=== PATIENT | male | born 1985 | race Caucasian/White ===

== ENCOUNTER 2022-11-23 15:57 | Emergency (ER) | payer OTHER ==
[~2022-11-23] VITALS: Ht 175 cm; Wt 85.6 kg
[~2022-11-23 15:57] MED LIST: Ibuprofen; LEVO750T6; PRD10T; PRD5T PO; TRAM-21; TRM50T; TRM50T PO
[2022-11-23] MEDS ORDERED: dexAMETHasone INJ 10 MG/ML 1 ML VIAL IV STA (16:14)
[2022-11-23] MEDS ORDERED: NS IV 1000 ML 1,000 ML IV STA (16:14)
--- NOTE | 2022-11-23 16:21 | ED Abdominal Pain ---
General Chief Complaint: Abdominal/GI Problems Stated Complaint: ABD PAIN Source of Information: Patient History of Present Illness Date Seen by Provider: Nov 23, 2022 Time Seen by Provider: 16:03 Initial Comments 37-year-old male presenting with complaints of lower abdominal and rectal pain since Monday. He has a history of Crohn's disease and recently had a colonoscopy that showed a tumor in the cecum as well as towards his rectum. He is scheduled to follow-up with surgeon Dr. Loli Owens out of [facility] in [place]. His GI provider is through [facility] gastro[facility] and when he called about the pain increasing since Monday when he decreased his prednisone to 10 mg a day they advised he come to the ED for a CT scan since it would be a week or better before they could order it as an outpatient. He denies nausea or vomiting or pain with urination. He felt the pain was worse on Monday and was having some sweating but did not take his temperature to see if he had a fever. He has pain 6 out of 10 today and states that occasionally he will have more severe sharp pains for a few seconds. He denies any blood in his stools or black tarry stools but states that since Monday his stools have been looser. Timing/Duration: 3-4 Days Severity/Quality: Moderate, Aching, Sharp (Occasional sharp stabbing pains) Location: RLQ, LLQ, Suprapubic, Other (Rectal) Activities at Onset: None Modifying Factors: Worsens With Eating, Worsens With Movement, Worsens With Palpation Associated Symptoms: No Back Pain, No Chest Pain, No Diaphoresis, No Fever/Chills, No Fatigue, No Headache, No Heartburn, No Nausea/Vomiting, No Rash, No Shortness of Air, No Syncope, No Weakness Allergies and Home Medications Allergies Coded Allergies: Azithromycin (Unverified Allergy, Mild, RASH, 05/08/09) Patient Home Medication List Home Medication List Reviewed: Yes Amoxicillin/Potassium Clav (Amox Tr-K Clv 875-125 mg Tab) 875 Mg-125 Mg Tablet, 1 EACH PO BID Prescribed by: THOMAS EDMONDSON on 11/23/22 1711 Hydrocodone/Acetaminophen (Hydrocodone-Acetamin 5-325 mg) 5 Mg-325 Mg Tablet, 1 TAB PO Q6H PRN for PAIN SEVERE Prescribed by: THOMAS EDMONDSON on 11/23/22 1740 Prednisone (Prednisone) 5 Mg Tab, 5 MG PO UD Prescribed by: MONICA KRUEGER on 06/17/112024 Tramadol Hcl (Ultram) 50 Mg Tab, 50 MG PO Q4-6HOURS PRN Prescribed by: MONICA KRUEGER on 06/17/112024 [Ibuprofen] , (Reported) Entered as Reported by: JAK PEREZ on 06/17/11 1853 Review of Systems Review of Systems Constitutional: No chills, No fever EENTM: No Symptoms Reported Respiratory: No Symptoms Reported Cardiovascular: No Symptoms Reported Gastrointestinal: See HPI Genitourinary: Denies Burning, Denies Discharge, Denies Flank Pain, Denies Hematuria Musculoskeletal: No back pain Skin: No rash Psychiatric/Neurological: Denies Headache Past Iaxbfkq-Jofywu-Cbjnkv Hx Past Medical History Surgery/Hospitalization HX: Crohn's disease Surgeries: Yes Appendectomy Reproductive Disorders: No Physical Exam Vital Signs Vital Signs - First Documented 11/23/22 16:31 Temp 36.7 Pulse 96 Resp 16 B/P (MAP) 191/85 (120) Pulse Ox 97 O2 Delivery Room Air Capillary Refill : Height/Weight/BMI Height: '" Weight: lbs. oz. kg; BMI Method:Stated General Appearance: WD/WN, no apparent distress HEENT: PERRL/EOMI Respiratory: chest non-tender, lungs clear, normal breath sounds, no respiratory distress, no accessory muscle use Cardiovascular: normal peripheral pulses, regular rate, rhythm Gastrointestinal: normal bowel sounds, soft, no pulsatile mass; No distended; guarding; No rebound; tenderness (diffuse voluntary guarding and tender to palpation more in the lower abdomen and suprapubic area) Rectal: deferred Extremities: normal range of motion, non-tender, normal capillary refill Neurologic/Psychiatric: alert, oriented x 3 Skin: normal color, warm/dry, tattoos/piercings (multiple tattoos) Images 1 - pain and tenderness to palpation of lower abdomen and suprapubic area Focused Exam Lactate Level 11/23/22 16:15: Lactic Acid Level 1.00 Lactic Acid Level Laboratory Tests Test 11/23/22 16:15 Lactic Acid Level 1.00 MMOL/L (0.50-2.00) Progress/Results/Core Measures Results/Orders Lab Results Laboratory Tests Test 11/23/22 16:15 Range/Units White Blood Count 13.5 H 4.3-11.0 10^3/uL Red Blood Count 5.03 4.30-5.52 10^6/uL Hemoglobin 15.2 13.3-17.7 g/dL Hematocrit 47 40-54 % Mean Corpuscular Volume 94 80-99 fL Mean Corpuscular Hemoglobin 30 25-34 pg Mean Corpuscular Hemoglobin Concent 32 32-36 g/dL Red Cell Distribution Width 13.6 10.0-14.5 % Platelet Count 312 130-400 10^3/uL Mean Platelet Volume 9.1 9.0-12.2 fL Immature Granulocyte % (Auto) 1 % Neutrophils (%) (Auto) 82 H 42-75 % Lymphocytes (%) (Auto) 11 L 12-44 % Monocytes (%) (Auto) 6 0-12 % Eosinophils (%) (Auto) 0 0-10 % Basophils (%) (Auto) 0 0-10 % Neutrophils # (Auto) 11.1 H 1.8-7.8 10^3/uL Lymphocytes # (Auto) 1.5 1.0-4.0 10^3/uL Monocytes # (Auto) 0.9 0.0-1.0 10^3/uL Eosinophils # (Auto) 0.0 0.0-0.3 10^3/uL Basophils # (Auto) 0.0 0.0-0.1 10^3/uL Immature Granulocyte # (Auto) 0.1 0.0-0.1 10^3/uL Neutrophils % (Manual) 80 % Lymphocytes % (Manual) 13 % Monocytes % (Manual) 7 % Sodium Level 139 135-145 MMOL/L Potassium Level 4.6 3.6-5.0 MMOL/L Chloride Level 105 98-107 MMOL/L Carbon Dioxide Level 26 21-32 MMOL/L Anion Gap 8 5-14 MMOL/L Blood Urea Nitrogen 9 7-18 MG/DL Creatinine 0.83 0.60-1.30 MG/DL Estimat Glomerular Filtration Rate 117 BUN/Creatinine Ratio 11 Glucose Level 134 H 70-105 MG/DL Lactic Acid Level 1.00 0.50-2.00 MMOL/L Calcium Level 9.0 8.5-10.1 MG/DL Corrected Calcium 9.3 8.5-10.1 MG/DL Total Bilirubin 0.6 0.1-1.0 MG/DL Aspartate Amino Transf (AST/SGOT) 79 H 5-34 U/L Alanine Aminotransferase (ALT/SGPT) 182 H 0-55 U/L Alkaline Phosphatase 59 40-136 U/L C-Reactive Protein 4.99 H <0.50 MG/DL Total Protein 7.1 6.4-8.2 GM/DL Albumin 3.6 3.2-4.5 GM/DL Lipase 70 8-78 U/L My Orders Orders - THOMAS EDMONDSON MD Comprehensive Metabolic Panel (11/23/22 16:14) Lipase (11/23/22 16:14) Ed Iv/Invasive Line Start (11/23/22 16:14) Cbc And Automated Diff (11/23/22 16:14) Ct Abdomen/Pelvis W (11/23/22 16:14) Ns Iv 1000 Ml (Ns Iv 1000 Ml) (11/23/22 16:14) Dexamethasone Injection (Dexamethasone (11/23/22 16:14) Lactic Acid Analyzer (11/23/22 16:14) Crp Fs (11/23/22 16:14) Iohexol Injection (Omnipaque 350 Mg/Ml 1 (11/23/22 16:30) Received Contrast (Hold Metformin- Contr (11/23/22 16:30) Ns (Ivpb) 100 Ml (Sodium Chloride 0.9% 1 (11/23/22 16:30) Manual Differential (11/23/22 16:15) Ceftriaxone Iv/Im (Ceftriaxone Iv/Im) (11/23/22 17:13) Metronidazole 500mg/100ml Ivpb (Metronid (11/23/22 17:13) Fentanyl Injection (Fentanyl Injection (11/23/22 17:31) Rx-Hydrocodone/Apap 5-325 Mg (Rx-Vicodin (11/23/22 17:45) Medications Given in ED Current Medications Medications Dose Ordered Sig/Salty Route Start Time Stop Time Status Last Admin Dose Admin Iohexol 100 ml ONCE ONCE IV 11/23/22 16:30 11/23/22 16:31 DC 11/23/22 16:36 80 ML Sodium Chloride 100 ml ONCE ONCE IV 11/23/22 16:30 11/23/22 16:31 DC 10/18/23 16:36 100 ML Vital Signs/I&O 11/23/22 16:31 Temp 36.7 Pulse 96 Resp 16 B/P (MAP) 191/85 (120) Pulse Ox 97 O2 Delivery Room Air Progress Progress Note #1: Progress Note Differential diagnosis includes colitis, diverticulitis, intra-abdominal abscess, pyelonephritis, cystitis, gastroenteritis, Crohn's exacerbation. Obtain peripheral IV access and send labs for complete blood count, comprehensive metabolic profile, lipase, CRP, lactic acid. Urinalysis to look for signs of infection or hematuria. CT scan of the abdomen and pelvis with IV contrast to look for acute intra-abdominal process. Administer normal saline 1 L IV fluid bolus for hydration, dexamethasone 10 mg IV for steroid burst. Patient declined needing anything stronger for pain at the moment. He states that he was just more worried and anxious about what was causing the pain and was wanting to get the imaging and testing. Both patient and spouse request to be transferred to [facility] if he needs to go to hospital as he is to follow-up with Dr. Owens as a surgeon through [facility]. Progress Note #2: Time: 17:13 Progress Note Labs show White blood cell count slightly elevated to 13.5 with Hemoglobin normal at 15.2 and platelets 312. The WBC count might be slightly elevated due to the steroids he has been taking vs infection. Comprehensive metabolic prof ile did not show any acute electrolyte abnormalities other than he had mild elevation in the glucose to 134 again likely related to the steroids he has been taking. His lactic acid was normal at 1. His CRP was elevated to 4.99. He had a normal lipase of 70. He had slight elevation of the AST to 79 and ALT to 182. [address] scan of the abdomen and pelvis with IV contrast. 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 There is no abscess. I placed a page to the colorectal surgery group to try and reach Dr. Owens. They paged Dr. Boyce the on-call colorectal surgeon. [id number] Liang, the on-call colorectal surgeon for Dr. Owens. I reviewed the patient's presentation and history as well as his current labs and CT finding. With him having an enteroenteric fistula but not having an abscess or signs of sepsis Dr. Boyce had suggested antibiotics and as long as his pain was tolerable having him follow-up with Dr. Owens for an elective surgery. If his pain was getting worse or out of control then he would need to be seen sooner and might require more emergent surgery. Will administer 1 g of Rocephin IV and Flagyl 500 mg IV to help with inflammation and infection. Continue Augmentin by mouth 875 p.o. twice daily. For pain patient still is rating it as a 5 or 6 and stated its more of a dull constant ache with occasional sharp pains. He felt like the pain was much worse on Monday but he was not seen then. Will administer fentanyl 50 mcg IV x1 here in the ED and prescribed hydrocodone/acetaminophen 5/325 1 every 6 hours as needed severe pain. Counseled on follow-up and return precautions. Especially if his pain is worsening or he feels like he has to take more of the hydrocodone he should try to present directly to [facility] where Dr. Owens could evaluate him and possibly do surgery. Diagnostic Imaging Diagonstic Imaging: CT Plain Films/CT/US/NM/MRI: abdomen, pelvis Comments [facility], [place] NAME: KIRSTY DOMINGUEZ [facility] REC#: [id number] PT STATUS: REG ER : 1985 PHYSICIAN: THOMAS EDMONDSON MD ADMIT DATE: 11/23/22/ER FS Signed Date of Exam:11/23/22 CT ABDOMEN/PELVIS W EXAMINATION: CT abdomen and pelvis with intravenous contrast. TECHNIQUE: Multiple contiguous axial images were obtained through the abdomen and pelvis after the uneventful administration of intravenous contrast. All CT scans use one or more of the following dose optimizing techniques: automated exposure control, MA and/or KvP adjustment based on patient size and exam type or iterative reconstruction. HISTORY: Abdominal pain, Crohn's disease COMPARISON: None available. FINDINGS: Limited views of the lower thorax are unremarkable. The liver is normal without focal lesion. There is no biliary ductal dilation. Gallbladder is normal. Pancreas is normal. Spleen is normal. Adrenal glands are normal. The kidneys are normal. There is no hydronephrosis. Urinary bladder is normal. There is a moderate length segment of active inflammation of the terminal ileum. There is some mucosal edema and surrounding stranding. An adjacent loop of bowel is tethered to the terminal ileum likely representing an enteroenteric fistula. No abscess is seen. No free fluid or air. No abdominal or pelvic lymphadenopathy. Aorta is normal in caliber without aneurysm. There are no suspicious osseus lesions. IMPRESSION: 1. Moderate length segment of active inflammation of the terminal ileum with a likely enteroenteric fistula to a more proximal loop of bowel. No abscess or perforation. Dictated by: Dictated on workstation # [id number] Dict: 11/23/221652 Trans: 11/23/221703 CVB [id number] Interpreted by: MINNIE ALDANA MD Electronically signed by: MINNIE ALDANA MD 11/23/221703 Reviewed: Reviewed by Me Departure Impression Primary Impression: Enteroenteric fistula Additional Impressions: Lower abdominal pain Crohn's disease Qualified Codes: K50.10 - Crohn's disease of large intestine without complications Disposition: 01 HOME, SELF-CARE Condition: Stable Departure-Patient Inst. Decision time for Depature: 17:40 Referrals: LIZ BUENO APRN (PCP) Primary Care Physician Patient Instructions: Crohn's Disease Diet, Enteric fistula, Inflammatory Bowel Disease (DC) Add. Discharge Instructions: Take antibiotics to help with inflammation and fistula. Call Dr. Owens's office in am and get follow up to be seen for elective surgery to treat for the fistula. If you pain worsens or you are having worsening symptoms then you would need to be seen sooner and should go directly to the hospital where Dr. Owens would be able to see you and treat you in [place]. All discharge instructions reviewed with patient and/or family. Voiced understanding. Scripts Hydrocodone/Acetaminophen (Hydrocodone-Acetamin 5-325 mg) 5 Mg-325 Mg Tablet 1 TAB PO Q6H PRN for PAIN SEVERE for 3 Days, #12 TAB 0 Refills Prov: THOMAS EDMONDSON MD 11/23/22 Amoxicillin/Potassium Clav (Amox Tr-K Clv 875-125 mg Tab) 875 Mg-125 Mg Tablet 1 EACH PO BID for Enteric fistula for 10 Days, #20 TAB 0 Refills Prov: THOMAS EDMONDSON MD 11/23/22 THOMAS EDMONDSON MD Nov 23, 2022 16:21
[2022-11-23 16:23] LABS: BASOPHILS % (AUTO) 0 % (0-10); EOSINOPHILS % (AUTO) 0 % (0-10); HEMATOCRIT 47 % (40-54); HEMOGLOBIN 15.2 g/dL (13.3-17.7); LYMPHOCYTES # (AUTO) 1.5 10^3/uL (1.0-4.0); LYMPHOCYTES % (AUTO) 11 % (12-44); MEAN CORPUSCULAR HEMOGLOBIN 30 pg (25-34); MEAN CORPUSCULAR HGB CONC 32 g/dL (32-36); MEAN CORPUSCULAR VOLUME 94 fL (80-99); MEAN PLATELET VOLUME 9.1 fL (9.0-12.2); MONOCYTES # (AUTO) 0.9 10^3/uL (0.0-1.0); MONOCYTES % (AUTO) 6 % (0-12); NEUTROPHILS # (AUTO) 11.1 10^3/uL (1.8-7.8); NEUTROPHILS % (AUTO) 82 % (42-75); PLATELET COUNT 312 10^3/uL (130-400); WHITE BLOOD COUNT 13.5 10^3/uL (4.3-11.0)
[2022-11-23] MEDS ORDERED: NS 100 ML (IVPB) BAG IV ONE (16:30)
[2022-11-23] MEDS ORDERED: HOLD METFORMIN - RECEIVED CONTRAST 20 ML VIAL IV SCH (16:30)
[2022-11-23] MEDS ORDERED: IOHEXOL 350 MG/ML 100 ML (OMNIPAQUE 350) VIAL IV ONE (16:30)
[2022-11-23 16:31] VITALS: BP 191/85
[2022-11-23 16:35] LABS: POTASSIUM 4.6 MMOL/L (3.6-5.0)
[2022-11-23 16:36] LABS: BILIRUBIN,TOTAL 0.6 MG/DL (0.1-1.0)
[2022-11-23 16:44] LABS: CREATININE SERUM 0.83 MG/DL (0.60-1.30)
[2022-11-23 16:45] LABS: ALBUMIN 3.6 GM/DL (3.2-4.5); TOTAL PROTEIN 7.1 GM/DL (6.4-8.2)
[2022-11-23 16:46] LABS: LYMPHOCYTES % (MANUAL) 13 %; MONOCYTES % (MANUAL) 7 %; NEUTROPHILS % (MANUAL) 80 %
--- NOTE | 2022-11-23 16:57 | Diagnostic Imaging Report ---
EXAMINATION: CT abdomen and pelvis with intravenous contrast. TECHNIQUE: Multiple contiguous axial images were obtained through the abdomen and pelvis after the uneventful administration of intravenous contrast. All CT scans use one or more of the following dose optimizing techniques: automated exposure control, MA and/or KvP adjustment based on patient size and exam type or iterative reconstruction. HISTORY: Abdominal pain, Crohn's disease COMPARISON: None available. FINDINGS: Limited views of the lower thorax are unremarkable. The liver is normal without focal lesion. There is no biliary ductal dilation. Gallbladder is normal. Pancreas is normal. Spleen is normal. Adrenal glands are normal. The kidneys are normal. There is no hydronephrosis. Urinary bladder is normal. There is a moderate length segment of active inflammation of the terminal ileum. There is some mucosal edema and surrounding stranding. An adjacent loop of bowel is tethered to the terminal ileum likely representing an enteroenteric fistula. No abscess is seen. No free fluid or air. No abdominal or pelvic lymphadenopathy. Aorta is normal in caliber without aneurysm. There are no suspicious osseus lesions. IMPRESSION: 1. Moderate length segment of active inflammation of the terminal ileum with a likely enteroenteric fistula to a more proximal loop of bowel. No abscess or perforation. Dictated by: Dictated on workstation # [id number]
[2022-11-23] MEDS ORDERED: AMOX1TAB12 PO (17:11)
[2022-11-23] MEDS ORDERED: cefTRIAXone IV/IM 1,000 MG in NS (IVPB) 50 ML 50 ML IV STA (17:13)
[2022-11-23] MEDS ORDERED: metroNIDAZOLE 500MG/100ML IVPB 100 ML IV STA (17:13)
[2022-11-23] MEDS ORDERED: fentaNYL INJECTION 100 MCG/2 ML VIAL IVP STA (17:31)
[2022-11-23] MEDS ORDERED: ACHD5005 PO (17:39)
== END 2022-11-23 18:45 | disposition home or self-care (01) ==
LOC: EDUNIT# 15:57 → ER FS 16:00
DX: K50.913 Crohn's disease, unspecified, with fistula (principal); R79.82 Elevated C-reactive protein (CRP)
CPT/HCPCS: 36415; 74177; 80053; 83605; 83690; 85007; 85027; 86141; 96361; 96365; 96375; Q9967